=== PATIENT | female | born 1950 | race Caucasian/White ===

== ENCOUNTER 2016-11-07 18:24 | Emergency (ER) | payer BC, MEDICAID ==
[2016-11-07 18:37] VITALS: BMI 24.8
[2016-11-07] MEDS ORDERED: DiphenhydrAMINE 50 mg/ml Inj IVP STA (18:41)
[2016-11-07] MEDS ORDERED: Sodium Chloride 0.9% 1,000 ML IV STA (18:41)
[2016-11-07 18:45] VITALS: TEMP 98.4
[2016-11-07 19:32] LABS: ALB/GLOB RATIO 1.4 (1.1-1.8); ALBUMIN 4.4 g/dL (3.0-4.8); ALT/SGPT 36 U/L (7-56); AST/SGOT 27 U/L (15-39); BASO # 0.01 K/mm3 (0.0-2.0); BASO % 0.1 % (0.0-3.0); BLOOD UREA NITROGEN 15 mg/dL (7-21); CALCIUM 9.5 mg/dL (8.4-10.5); EOS # 0.1 (0.0-0.7); EOS % 1.4 % (1.5-5.0); GFR AFRICAN-AMERICAN > 60; GFR NON-AFRICAN AMERICAN > 60; GRAN % 44.9 % (50.0-68.0); HEMOGLOBIN 15.2 gm/dL (12.0-16.0); LIPASE 105 U/L (23-300); LYMPH % 49.1 % (22.0-35.0); MEAN CELL VOLUME 86.2 fL (80.0-105.0); MEAN CORPUSCULAR HEMOGLOBIN 29.9 pg (25.0-35.0); MEAN CORPUSCULAR HGB CONC 34.6 g/dl (31.0-37.0); MEAN PLATELET VOLUME 11.3 fl (7.0-11.0); MONO # 0.5 (0.1-0.6); MONO % 4.5 % (1.0-6.0); PLATELET COUNT 235 10^3/uL (120.0-450.0); RBC 5.09 10^6/uL (3.5-6.1); WHITE BLOOD COUNT 10.2 10^3/ul (4.5-11.0)
[2016-11-07 19:36] LABS: INR 1.01 (0.93-1.08); PROTHROMBIN TIME 10.9 Seconds (9.9-11.8)
--- NOTE | 2016-11-07 19:40 | ED PDOC ---
Arrival/HPI - General Chief Complaint: Allergic Reaction Time Seen by Provider: 11/07/16 18:36 Historian: Patient - History of Present Illness Narrative History of Present Illness (Text): 11/07/16 19:39 66 year old female presents to the emergency department for allergic reaction with throat closing, itchiness on hands, and associated vomiting after making a smoothie at home. Patient reports she used multiple ingredients including spinach, celery, flax seeds, and tanja seeds. She then says that she immediately within a few seconds felt her symptoms. Patient reports she had an allergic reaction to hummus 1 year ago. Denies urinary symptoms. No chest pain or dizziness. Time/Duration: Prior to Arrival Symptom Onset: Sudden Symptom Course: Unchanged Modifying Factors (Text): None Past Medical History - Provider Review Nursing Documentation Reviewed: Yes - Infectious Disease Hx of Infectious Diseases: None - Tetanus Immunization Tetanus Immunization: Unknown - Past Medical History Past Medical History: No Previous - Cardiac Hx Hyperlipemia: Yes Hx Pacemaker: No - Neurological Hx Paralysis: No - Hematological/Oncological Hx Blood Transfusions: No - Musculoskeletal/Rheumatological Hx Musculoskeletal Disorders: No - Psychiatric Hx Substance Use: No - Past Surgical History Past Surgical History: No Previous - Surgical History Other/Comment: right breast biopsy - Anesthesia Hx Anesthesia Reactions: Yes Hx Malignant Hyperthermia: No - Suicidal Assessment Feels Threatened In Home Enviroment: No Family/Social History - Physician Review Nursing Documentation Reviewed: Yes Family/Social History: Unknown Family HX Smoking Status: Never Smoked Hx Alcohol Use: No Hx Substance Use: No Hx Substance Use Treatment: No Allergies/Home Meds Allergies/Adverse Reactions: Allergies Penicillins Allergy (Verified 11/07/16 18:37) ANAPHYLAXIS Home Medications: Home Meds Medication Instructions Recorded Confirmed Cyanocobalamin (Vitamin B-12) 1,000 mcg PO QOTHERDAY 11/07/16 11/07/16 [Vitamin B-12] Multivitamin [Multi-Vitamin Daily] 1 each PO DAILY 11/07/16 11/07/16 Review of Systems - Physician Review All systems were reviewed & negative as marked: Yes - Review of Systems Eyes: absent: Vision Changes ENT: Other (feeling of throat swelling). absent: Hearing Changes Respiratory: Other (Throat closing sensation) Cardiovascular: absent: Chest Pain Gastrointestinal: Abdominal Pain, Nausea, Vomiting Genitourinary Female: absent: Dysuria Skin: Rash, Pruritis Neurological: absent: Headache Endocrine: absent: Diaphoresis Physical Exam Vital Signs Reviewed: Yes Vital Signs Temp Pulse Resp BP Pulse Ox 11/07/16 21:18 73 18 119/51 L 98 11/07/16 18:25 98.4 F 99 H 22 137/65 91 L Temperature: Afebrile Blood Pressure: Normal Pulse: Regular Respiratory Rate: Normal Appearance: Positive for: Non-Toxic Mental Status: Positive for: Alert and Oriented X 3 - Systems Exam Head: Present: Atraumatic, Normocephalic Pupils: Present: PERRL Conjunctiva: Present: Normal Mouth: Present: Moist Mucous Membranes Pharnyx: Present: Normal. No: ERYTHEMA, EXUDATE, TONSILS ENLARGED, Peritonsilar Swelling, Uvular Deviation, Muffled/Hoarse Voice, Strider, Soft Palate/Uvular Edema Neck: Present: Normal Range of Motion Respiratory/Chest: Present: Clear to Auscultation. No: Respiratory Distress, Accessory Muscle Use Cardiovascular: Present: Regular Rate and Rhythm, Normal S1, S2. No: Murmurs Abdomen: Present: Tenderness (Mild left uuper quadrant ttp), Normal Bowel Sounds. No: Distention, Peritoneal Signs Back: Present: Normal Inspection Upper Extremity: Present: Normal Inspection. No: Cyanosis, Edema Lower Extremity: Present: Normal Inspection. No: Edema Neurological: Present: GCS=15, CN II-XII Intact, Speech Normal Skin: Present: Warm, Dry, Rashes (There is an erythematous macular rash on the arms and trunk b/L with some palmar involvement but none n the soles.), Normal Color Psychiatric: Present: Alert, Oriented x 3, Normal Insight, Normal Concentration Medical Decision Making ED Course and Treatment: Impression: 66 year old female presents to the emergency department for allergic reaction with throat closing, itchiness on hands, and associated vomiting after making a smoothie at home. Differential Diagnosis include but are not limited to: Allergic reaction vs atypical acs vs gastritis vs pancreatitis Plan: -- Benadryl, Pepcid, Solu-medrol -- Labs -- Reassess and disposition Prior Visits: Notes and results from previous visits were reviewed. Patient last seen in ED on 05/02/15 for sore throat and discharged home. Progress Notes: 11/07/16 20:18 Patient reports full resolution of symptoms. She states she feels better. Labs and EKG unremarkable. 11/07/16 21:55 Patient has been observed further; continues to state that her symptoms have fully resolved. She no longer has any abdominal pain and no abdominal tenderness on exam as well as full resolution of throat closing sensation and rash. Will d/c on steroids and benadryl and have her f/u pmd. - Lab Interpretations Lab Results: 11/07/16 19:00 11/07/16 19:00 Lab Results 11/07/16 19:00: Sodium 139, Potassium 3.6, Chloride 102, Carbon Dioxide 22, Anion Gap 19, BUN 15, Creatinine 0.7, Est GFR ( Amer) > 60, Est GFR (Non- Af Amer) > 60, Random Glucose 134 H, Calcium 9.5, Total Bilirubin 0.7, AST 27, ALT 36, Alkaline Phosphatase 75, Lactate Dehydrogenase 439, Total Creatine Kinase 82, Troponin I < 0.01, Total Protein 7.6, Albumin 4.4, Globulin 3.2, Albumin/Globulin Ratio 1.4, Lipase 105 11/07/16 19:00: PT 10.9, INR 1.01, APTT 24.0 11/07/16 19:00: WBC 10.2 D, RBC 5.09, Hgb 15.2, Hct 43.9, MCV 86.2, MCH 29.9, MCHC 34.6, RDW 13.0, Plt Count 235, MPV 11.3 H, Gran % 44.9 L, Lymph % (Auto) 49.1 H, [place] % (Auto) 4.5, Eos % (Auto) 1.4 L, Baso % (Auto) 0.1, Gran # 4.60, Lymph # 5.0 H, [place] # 0.5, Eos # 0.1, Baso # 0.01 - EKG Interpretation EKG Interpretation (Text): EKG shows NSR at [address]/T wave changes, normal axis, normal intervals. Interpreted by me. Interpreted by ED Physician: Yes Type: 12 lead EKG - Medication Orders Current Medication Orders: Discontinued Medications Diphenhydramine HCl (Benadryl) 25 mg IVP STAT STA Stop: 11/07/16 18:42 Last Admin: 11/07/16 18:52 Dose: 25 mg Famotidine (Pepcid) 20 mg IVP STAT STA Stop: 11/07/16 18:42 Last Admin: 11/07/16 18:52 Dose: 20 mg Sodium Chloride (Sodium Chloride 0.9%) 1,000 mls @ 999 mls/hr IV .[id number] STA Stop: 11/07/16 19:41 Last Admin: 11/07/16 18:50 Dose: 999 mls/hr Methylprednisolone (Solu-Medrol) 125 mg IVP STAT STA Stop: 11/07/16 18:42 Last Admin: 11/07/16 18:52 Dose: 125 mg - Scribe Statement The provider has reviewed the documentation as recorded by the Jason Hernandez Provider Scribe Attestation: All medical record entries made by the Selwynibladonna were at my direction and personally dictated by me. I have reviewed the chart and agree that the record accurately reflects my personal performance of the history, physical exam, medical decision making, and the department course for this patient. I have also personally directed, reviewed, and agree with the discharge instructions and disposition. Disposition/Present on Arrival - Present on Arrival Any Indicators Present on Arrival: No History of DVT/PE: No History of Uncontrolled Diabetes: No Urinary Catheter: No History of Decub. Ulcer: No History Surgical Site Infection Following: None - Disposition Have Diagnosis and Disposition been Completed?: Yes Diagnosis: Allergic reaction Disposition: HOME/ ROUTINE Disposition Time: 22:00 Patient Plan: Discharge Condition: GOOD Discharge Instructions (ExitCare): Food Allergy (ED) Additional Instructions: Take the medications as prescribed. Avoid any of the substances that may have caused the reaction till assessment by an telemetry monitor. Follow up with Dr. Goldman. Return to the emergency department if any new concerning symptoms. Prescriptions: DiphenhydrAMINE [Benadryl] 1 cap PO Q6H PRN #20 cap PRN Reason: Itching / Pruritus predniSONE [Prednisone] 2 tab PO DAILY #8 tab Referrals: Craig Goldman MD [Primary Care Provider] - Follow up with primary
[2016-11-07 19:46] LABS: TROPONIN I < 0.01 ng/mL
[2016-11-07 21:19] VITALS: BP 119/51; PULSE 73; RESP 18; O2SAT 98
--- NOTE | 2016-11-08 08:55 | CARD ---
APPROVED REPORT EKG Measurement Heart [id number] <Conclusion> Normal sinus rhythm NSSTW changes, new
== END 2016-11-07 22:05 | disposition home or self-care (01) ==
LOC: ED 18:24
DX: T78.1XXA Other adverse food reactions, not elsewhere classified, initial encounter (principal); R11.10 Vomiting, unspecified; R09.89 Other specified symptoms and signs involving the circulatory and respiratory systems; X58.XXXA Exposure to other specified factors, initial encounter; E78.5 Hyperlipidemia, unspecified
CPT/HCPCS: 80053; 82550; 83615; 83690; 84484; 85025; 85610; 85730; 93005; 96361; 96374; 96375; 99284; J1200; J2930; J7040

== ENCOUNTER 2017-12-16 00:01 | Emergency (ER) | payer MEDICARE, OTHER ==
[2017-12-16 00:12] VITALS: BMI 26.9
[2017-12-16 00:16] VITALS: RESP 18; TEMP 97.9
--- NOTE | 2017-12-16 00:38 | ED PDOC ---
Arrival/HPI - General Chief Complaint: Headache Time Seen by Provider: 12/16/17 00:10 Historian: Patient - History of Present Illness Narrative History of Present Illness (Text): 12/16/17 00:37 Hallie Villalba is a 67 year old female, whose past medical history includes trigeminal neuralgia, who presents to the emergency department complaining of facial pain since yesterday. Patient states she has been experiencing left- sided facial pain with associated headache, nausea, and dizziness. Patient notes she has experienced similar pain in the past and was diagnosed with trigeminal neuralgia. Patient states she has been taking Advil for pain but denies any relief. Patient denies any fever, chills, chest pain, shortness of breath, abdominal pain, vomiting, diarrhea, urinary symptoms, back pain, neck pain, or any other complaints. Symptom Onset: Gradual Symptom Course: Unchanged Activities at Onset: Light Context: Home Past Medical History - Provider Review Nursing Documentation Reviewed: Yes - Infectious Disease Hx of Infectious Diseases: None - Tetanus Immunization Tetanus Immunization: Unknown - Past Medical History Past Medical History: No Previous - Cardiac Hx Hyperlipemia: Yes Hx Pacemaker: No - Neurological Hx Paralysis: No - Hematological/Oncological Hx Blood Transfusions: No - Musculoskeletal/Rheumatological Hx Musculoskeletal Disorders: No - Psychiatric Hx Substance Use: No - Past Surgical History Past Surgical History: No Previous - Surgical History Other/Comment: right breast biopsy - Anesthesia Hx Anesthesia Reactions: Yes Hx Malignant Hyperthermia: No - Suicidal Assessment Feels Threatened In Home Enviroment: No Family/Social History - Physician Review Nursing Documentation Reviewed: Yes Family/Social History: Unknown Family HX Smoking Status: Never Smoked Hx Alcohol Use: No Hx Substance Use: No Hx Substance Use Treatment: No Allergies/Home Meds Allergies/Adverse Reactions: Allergies Penicillins Allergy (Verified 11/07/16 18:37) ANAPHYLAXIS Home Medications: Home Meds Medication Instructions Recorded Confirmed Cyanocobalamin (Vitamin B-12) 1,000 mcg PO QOTHERDAY 11/07/16 12/19/17 [Vitamin B-12] Multivitamin [Multi-Vitamin Daily] 1 each PO DAILY 11/07/16 12/19/17 Gabapentin [Neurontin] 100 mg PO DAILY 12/19/17 12/19/17 Review of Systems - Physician Review All systems were reviewed & negative as marked: Yes - Review of Systems Constitutional: Normal Eyes: Normal ENT: Normal Respiratory: Normal Cardiovascular: Normal Gastrointestinal: Nausea Genitourinary Female: Normal. absent: Dysuria, Frequency, Hematuria, Urine Output Changes Musculoskeletal: Normal. absent: Back Pain, Neck Pain Skin: Normal. absent: Rash Neurological: Headache, Dizziness, Other (+left-sided facial pain) Endocrine: Normal Hemo/Lymphatic: Normal Psychiatric: Normal Physical Exam Vital Signs Reviewed: Yes Vital Signs Temp Pulse Resp BP Pulse Ox 12/16/17 02:30 85 18 131/85 100 12/16/17 00:15 97.9 F 67 18 142/81 98 Temperature: Afebrile Blood Pressure: Normal Pulse: Regular Respiratory Rate: Normal Appearance: Positive for: Well-Appearing, Non-Toxic, Comfortable Pain Distress: None Mental Status: Positive for: Alert and Oriented X 3 - Systems Exam Head: Present: Atraumatic, Normocephalic Pupils: Present: PERRL Extroacular Muscles: Present: EOMI Conjunctiva: Present: Normal Mouth: Present: Moist Mucous Membranes Neck: Present: Normal Range of Motion Respiratory/Chest: Present: Clear to Auscultation, Good Air Exchange. No: Respiratory Distress, Accessory Muscle Use Cardiovascular: Present: Regular Rate and Rhythm, Normal S1, S2. No: Murmurs Abdomen: No: Tenderness, Distention, Peritoneal Signs Back: Present: Normal Inspection. No: CVA Tenderness, Midline Tenderness, Paraspinal Tenderness Upper Extremity: Present: Normal Inspection. No: Cyanosis, Edema Lower Extremity: Present: Normal Inspection. No: Edema Neurological: Present: GCS=15, CN II-XII Intact, Speech Normal, Motor Func Grossly Intact, Normal Sensory Function, Gait Normal, Memory Normal Skin: Present: Warm, Dry, Normal Color. No: Rashes Psychiatric: Present: Alert, Oriented x 3, Normal Insight, Normal Concentration Medical Decision Making ED Course and Treatment: 12/16/17 00:37 Impression: 67 year old female complaining of left-sided facial pain since yesterday. Plan: -- CT Head w/o contrast -- IV fluids -- Reglan -- Reassess and disposition Prior Visits: Notes and results from previous visits were reviewed. Progress Notes: 12/16/17 02:25 CT Head shows: Brain: Normal. No hemorrhage. No significant white matter disease. No edema. Ventricles: Normal. No ventriculomegaly. Bones/joints: Normal. No acute fracture. Sinuses: Normal as visualized. No acute sinusitis. Mastoid air cells: Normal as visualized. No mastoid effusion. Soft tissues: Normal. IMPRESSION: No definite acute intracranial abnormality 12/16/17 02:30 On reevaluation the patient feels better and is in no acute distress. I have discussed the results and plan with the patient, who expresses understanding. Patient given the opportunity to ask question, all questions were answered and there is agreement with the plan to discharge the patient home. Patient is stable for discharge. Patient was instructed to follow up with physician/clinic in 1-2 days or return if symptoms persist/worsen or new concerning symptoms arise. - RAD Interpretation Radiology Orders: 12/16/17 00:41 HEAD W/O CONTRAST [CT] Stat [employer] Vendor: Radiologist - EKG Interpretation Interpreted by ED Physician: Yes Type: 12 lead EKG - Medication Orders Current Medication Orders: Discontinued Medications Sodium Chloride (Sodium Chloride 0.9%) 1,000 mls @ 80 mls/hr IV .[id number] Last Admin: 12/16/17 01:01 Dose: 80 mls/hr eMAR Start Stop Document 12/16/17 01:01 AD (Rec: 12/16/17 01:01 AD [id number]) Intravenous Solution Start Date 12/16/17 Start Time 01:01 Metoclopramide HCl (Reglan) 10 mg IVP ONCE ONE Stop: 12/16/17 00:41 Last Admin: 12/16/17 01:01 Dose: 10 mg IVP Administration Document 12/16/17 01:01 AD (Rec: 12/16/17 01:01 AD [id number]) Charges for Administration # of IVP Administrations 1 - Scribe Statement The provider has reviewed the documentation as recorded by the Jason Avelar Provider Scribe Attestation: All medical record entries made by the Scribladonna were at my direction and personally dictated by me. I have reviewed the chart and agree that the record accurately reflects my personal performance of the history, physical exam, medical decision making, and the department course for this patient. I have also personally directed, reviewed, and agree with the discharge instructions and disposition. Disposition/Present on Arrival - Present on Arrival Any Indicators Present on Arrival: No History of DVT/PE: No History of Uncontrolled Diabetes: No Urinary Catheter: No History of Decub. Ulcer: No History Surgical Site Infection Following: None - Disposition Have Diagnosis and Disposition been Completed?: Yes Diagnosis: Migraine Disposition: HOME/ ROUTINE Disposition Time: 02:30 Condition: GOOD Discharge Instructions (ExitCare): Migraine Headache (DC) Forms: [employer] ([employer]ive[employer])
[2017-12-16] MEDS ORDERED: Sodium Chloride 0.9% 1,000 ML IV SCH (00:45)
[2017-12-16 07:48] VITALS: BP 131/85; PULSE 85; O2SAT 100
--- NOTE | 2017-12-16 08:17 | CT ---
Date of service: 12/16/2017 PROCEDURE: CT HEAD WITHOUT CONTRAST. HISTORY: peguero COMPARISON: None available. TECHNIQUE: Axial computed tomography images were obtained through the head/brain without intravenous contrast. Radiation dose: Total exam DLP = 758 mGy-cm. This CT exam was performed using one or more of the following dose reduction techniques: Automated exposure control, adjustment of the mA and/or kV according to patient size, and/or use of iterative reconstruction technique. FINDINGS: HEMORRHAGE: No intracranial hemorrhage. BRAIN: No mass effect or edema. No atrophy or chronic microvascular ischemic changes. There is a probable arachnoid cyst at the right cerebellar pontine angle cistern VENTRICLES: Unremarkable. No hydrocephalus. CALVARIUM: Unremarkable. PARANASAL SINUSES: Unremarkable as visualized. No significant inflammatory changes. MASTOID AIR CELLS: Unremarkable as visualized. No inflammatory changes. OTHER FINDINGS: The report concurs with the preliminary [facility] report IMPRESSION: No acute intracranial findings
== END 2017-12-16 02:30 | disposition home or self-care (01) ==
LOC: ED 00:01
DX: G43.909 Migraine, unspecified, not intractable, without status migrainosus (principal); E78.5 Hyperlipidemia, unspecified
CPT/HCPCS: 70450; 96374; 99285; J2765; J7030

== ENCOUNTER 2017-12-19 18:46 | Emergency (ER) | payer MEDICARE, OTHER ==
[2017-12-19 18:47] VITALS: BMI 26.9
[2017-12-19 19:14] VITALS: TEMP 98.8
[2017-12-19] MEDS ORDERED: Sodium Chloride 0.9% 1,000 ML IV SCH (19:15)
[2017-12-19 19:25] LABS: BASO # 0.01 K/mm3 (0.0-2.0); BASO % 0.1 % (0.0-3.0); EOS # 0.2 (0.0-0.7); EOS % 1.9 % (1.5-5.0); GRAN # 4.96 (1.4-6.5); GRAN % 61.9 % (50.0-68.0); LYMPH # 2.5 (1.2-3.4); LYMPH % 30.7 % (22.0-35.0); MEAN CELL VOLUME 85.3 fl (80.0-105.0); MEAN CORPUSCULAR HEMOGLOBIN 29.8 pg (25.0-35.0); MONO # 0.4 (0.1-0.6); MONO % 5.4 % (1.0-6.0); RBC 5.03 10^6/uL (3.5-6.1)
[2017-12-19 19:32] LABS: INR 1.02; PARTIAL THROMBOPLASTIN TIME 30.4 Seconds (25.1-36.5); PROTHROMBIN TIME 11.6 SECONDS (9.4-12.5)
[2017-12-19 19:38] LABS: ALB/GLOB RATIO 1.4 (1.1-1.8); ALBUMIN 4.6 g/dL (3.0-4.8); ALT/SGPT 44 U/L (7-56); AST/SGOT 28 U/L (14-36); BLOOD UREA NITROGEN 10 mg/dL (7-21); CALCIUM 9.8 mg/dL (8.4-10.5); GFR AFRICAN-AMERICAN > 60; GFR NON-AFRICAN AMERICAN > 60; HDL CHOLESTEROL 47 mg/dL (29-60)
[2017-12-19 19:48] LABS: LDL CHOLESTEROL 182 mg/dL (0-129)
[2017-12-19 19:52] LABS: TROPONIN I < 0.01 ng/mL
--- NOTE | 2017-12-19 21:13 | ED PDOC ---
Arrival/HPI - General Chief Complaint: Weakness/Neurological Deficit Time Seen by Provider: 12/19/17 19:08 Historian: Patient, EMS - History of Present Illness Narrative History of Present Illness (Text): 12/19/17 19:05 Hallie Villalba is a 67 year old female, whose past medical history includes trigeminal neuralgia, who presents to the emergency department complaining of weakness. Patient states she has been experiencing left-sided facial numbness/ discomfort for the past few days and was seen and treated in the ER for similar complaints on 12/16/2017. Patient states today she developed generalized weakness and left leg numbness and came to the ER for further evaluation. Patient denies any fever, chills, chest pain, shortness of breath, nausea, vomiting, diarrhea, urinary symptoms, back pain, neck pain, headache, dizziness , vision changes, or any other complaints. Symptom Onset: Gradual Symptom Course: Unchanged Activities at Onset: Light Context: Home Past Medical History - Provider Review Nursing Documentation Reviewed: Yes - Infectious Disease Hx of Infectious Diseases: None - Tetanus Immunization Tetanus Immunization: Unknown - Past Medical History Past Medical History: No Previous - Cardiac Hx Pacemaker: No - Neurological Hx Paralysis: No Other/Comment: trigeminal neurolgia - Hematological/Oncological Hx Blood Transfusions: No - Musculoskeletal/Rheumatological Hx Musculoskeletal Disorders: No - Psychiatric Hx Emotional Abuse: No Hx Physical Abuse: No Hx Substance Use: No - Past Surgical History Past Surgical History: No Previous - Surgical History Other/Comment: right breast biopsy - Anesthesia Hx Anesthesia Reactions: Yes Hx Malignant Hyperthermia: No - Suicidal Assessment Feels Threatened In Home Enviroment: No Family/Social History - Physician Review Nursing Documentation Reviewed: Yes Family/Social History: Unknown Family HX Smoking Status: Never Smoked Hx Alcohol Use: No Hx Substance Use: No Hx Substance Use Treatment: No Allergies/Home Meds Allergies/Adverse Reactions: Allergies Penicillins Allergy (Verified 11/07/16 18:37) ANAPHYLAXIS Home Medications: Home Meds Medication Instructions Recorded Confirmed Cyanocobalamin (Vitamin B-12) 1,000 mcg PO QOTHERDAY 11/07/16 12/19/17 [Vitamin B-12] Multivitamin [Multi-Vitamin Daily] 1 each PO DAILY 11/07/16 12/19/17 Gabapentin [Neurontin] 100 mg PO DAILY 12/19/17 12/19/17 Review of Systems - Physician Review All systems were reviewed & negative as marked: Yes - Review of Systems Constitutional: Other (+generalized weakness). absent: Fevers Eyes: Normal. absent: Vision Changes ENT: Normal Respiratory: Normal. absent: SOB, Cough Cardiovascular: Normal. absent: Chest Pain Gastrointestinal: Normal. absent: Abdominal Pain, Diarrhea, Nausea, Vomiting Genitourinary Female: Normal. absent: Dysuria, Frequency, Hematuria, Urine Output Changes, Vaginal Discharge Musculoskeletal: Normal. absent: Back Pain, Neck Pain Skin: Normal. absent: Rash Neurological: Other (+left-sided facial numbness/discomfort). absent: Headache , Dizziness Endocrine: Normal Hemo/Lymphatic: Normal Psychiatric: Normal Physical Exam Vital Signs Reviewed: Yes Vital Signs Temp Pulse Resp BP Pulse Ox 12/19/17 21:45 67 12 132/55 L 98 12/19/17 20:08 62 16 134/72 96 12/19/17 19:13 98.8 F 80 18 163/125 H 98 12/19/17 19:08 99.5 F 83 18 145/80 96 Temperature: Afebrile Blood Pressure: Normal Pulse: Regular Respiratory Rate: Normal Appearance: Positive for: Well-Appearing, Non-Toxic, Comfortable Pain Distress: None Mental Status: Positive for: Alert and Oriented X 3 Finger Stick Blood Glucose: 123 - Systems Exam Head: Present: Atraumatic, Normocephalic Pupils: Present: PERRL Extroacular Muscles: Present: EOMI Conjunctiva: Present: Normal Mouth: Present: Moist Mucous Membranes Neck: Present: Normal Range of Motion Respiratory/Chest: Present: Clear to Auscultation, Good Air Exchange. No: Respiratory Distress, Accessory Muscle Use Cardiovascular: Present: Regular Rate and Rhythm, Normal S1, S2. No: Murmurs Abdomen: No: Tenderness, Distention, Peritoneal Signs Back: Present: Normal Inspection Upper Extremity: Present: Normal Inspection. No: Cyanosis, Edema Lower Extremity: Present: Normal Inspection. No: Edema Neurological: Present: GCS=15, CN II-XII Intact, Speech Normal, Motor Func Grossly Intact, Normal Sensory Function, Normal Cerebellar Funct, Memory Normal Skin: Present: Warm, Dry, Normal Color. No: Rashes Psychiatric: Present: Alert, Oriented x 3, Normal Insight, Normal Concentration Medical Decision Making ED Course and Treatment: 12/19/17 19:05 Impression: 67 year old female complaining of left-sided facial weakness, generalized weakness, and left-sided numbness. Plan: -- CT Head w/o contrast -- EKG -- Chest X-ray -- Labs, blood type and screen, lipid panel, troponin -- IV fluids -- Reglan -- Reassess and disposition Prior Visits: Notes and results from previous visits were reviewed. Progress Notes: 12/19/17 19:09 Code Stroke called. Pt taken to CT scan. 12/19/17 19:[address] Wilkes, neurologist, who states pt is not a code stroke and requests Code stroke be cancelled. pt to follow up with dr wilkes in am 12/19/17 19:36 CT Head reviewed, shows: Brain: Unremarkable. No hemorrhage. No significant white matter disease. No edema. Ventricles: There is mild asymmetric prominence of the CSF space at the right CP angle, unchanged. Suspect anatomic variant. Bones/joints: Unremarkable. No acute fracture. Soft tissues: Unremarkable. Sinuses: Unremarkable as visualized. No acute sinusitis. Mastoid air cells: Unremarkable as visualized. No mastoid effusion. IMPRESSION: No evidence for acute intracranial abnormality. Preliminary interpretation is based on receipt of 351 image(s). A final report will be issued subsequently. 12/19/17 19:37 Reviewed EKG, NSR at [address]-segment elevations or depressions, no T-wave inversions, normal intervals. 12/19/17 21:47 On re-evaluation, patient feels better and is in no acute distress. I have discussed the results and plan with the patient, who expresses understanding. Patient in agreement with plan to be discharged home. Patient is stable for discharge. Patient was instructed to follow up with physician or return if symptoms worsen or new concerning symptoms arise. 12/21/17 22:21 - Lab Interpretations Lab Results: 12/19/17 19:13 12/19/17 19:13 Lab Results 12/19/17 19:13: Hemoglobin A1c 5.9 12/19/17 19:13: Sodium 142, Potassium 4.0, Chloride 104, Carbon Dioxide 25, Anion Gap 16, BUN 10, Creatinine 0.6 L, Est GFR ( Amer) > 60, Est GFR ( Non-Af Amer) > 60, Random Glucose 123 H, Calcium 9.8, Total Bilirubin 0.6, AST 28, ALT 44, Alkaline Phosphatase 86, Troponin I < 0.01, Total Protein 7.9, Albumin 4.6, Globulin 3.3, Albumin/Globulin Ratio 1.4, Triglycerides 153, Cholesterol 270 H, LDL Cholesterol Direct 182 H, HDL Cholesterol 47 12/19/17 19:13: PT 11.6, INR 1.02, APTT 30.4 12/19/17 19:13: WBC 8.0 D, RBC 5.03, Hgb 15.0, Hct 42.9, MCV 85.3, MCH 29.8, MCHC 35.0, RDW 13.0, Plt Count 193, MPV 10.0, Gran % 61.9, Lymph % (Auto) 30.7, Leake % (Auto) 5.4, Eos % (Auto) 1.9, Baso % (Auto) 0.1, Gran # 4.96, Lymph # ( Auto) 2.5, Leake # (Auto) 0.4, Eos # (Auto) 0.2, Baso # (Auto) 0.01 12/19/17 19:10: Blood Type A POSITIVE, Antibody Screen Negative, BBK History Checked No verified bt I have reviewed the lab results: Yes - RAD Interpretation Radiology Orders: 12/19/17 19:14 HEAD W/O (CODE STROKE) [CT] Stat CHEST PORTABLE [RAD] Stat Lecturer In Computer Science: ED Physician, Radiologist - EKG Interpretation Interpreted by ED Physician: Yes Type: 12 lead EKG - Medication Orders Current Medication Orders: Discontinued Medications Sodium Chloride (Sodium Chloride 0.9%) 1,000 mls @ 100 mls/hr IV .Q10H [facility] Last Admin: 12/19/17 19:33 Dose: 100 mls/hr eMAR Start Stop Document 12/19/17 19:33 CNR (Rec: 12/19/17 19:34 CNR [facility] [id number] Intravenous Solution Start Date 12/19/17 Start Time 19:33 Ketorolac Tromethamine (Toradol) 15 mg IVP ONCE ONE Stop: 12/19/17 20:17 Last Admin: 12/19/17 20:23 Dose: 15 mg MAR Pain Assessment Document 12/19/17 20:23 CNR (Rec: 12/19/17 20:23 CNR [id number]) Pain Reassessment Is this a pain reassessment? No IVP Administration Document 12/19/17 20:23 CNR (Rec: 12/19/17 20:23 CNR [id number]) Charges for Administration # of IVP Administrations 1 Metoclopramide HCl (Reglan) 10 mg IVP ONCE ONE Stop: 12/19/17 19:25 Last Admin: 12/19/17 19:34 Dose: 10 mg IVP Administration Document 12/19/17 19:34 CNR (Rec: 12/19/17 19:34 CNR [facility] [id number][facility] Charges for Administration # of IVP Administrations 1 NIHSS Scale ([place]) Time Performed: 19:09 - How Severe is the Stoke Baseline Level of Consciousness: 0=Alert LOC to Questions: 0=Both comments correct LOC to commands: 0=Obeys both correctly Best Gaze: 0=Normal Visual: 0=No visual loss Facial: 0=Normal Motor Arm - Left: 0=No drift Motor Arm - Right: 0=No drift Motor Leg - Left: 0=No drift Motor Leg - Right: 0=No drift Limb Ataxia: 0=Absent Sensory: 0=Normal Best Language: 0=No aphasia Dysarthia: 0=Normal articulation Extinction & Inattention (Neglect): 0=Normal, no object Score: 0 Risk Level: No Stroke Risk rTPA Inclusion/Exclusion - Refusal of Treatment Patient Refused Treatment: No - Inclusion Criteria for Altepase Patient is 18 years or Older: Yes The Clinical Diagnosis of Ischemic Stroke That is Causing a Potentially Disabling Neurological Deficit: No Time of Onset is Well Established to be Less Than 270 Minute Before Treatment Would Begin: Yes Risk/Benefit Discussed With Patient/Family Member Present: Yes - Exclusion Criteria for Altepase Uncontrolled Hypertension at Time of Treatment (Systolic BP above 185 or Diastolic BP above 110 mmHg): No Active Internal Bleeding: No Known Bleeding Diathesis Including but Not Limited to: Platelets Below 100,000/ mm,PTT Above 40 sec After Heparin Use, Current Use of Oral Anitcoagulant With INR Greater Than 1.7 or PT Greater Than 15 secs: No Evidence of an Intracranial Hemorrhage: No Evidence of Major Acute Infarct With Signs Greater Than 1/3 MCA Territory: No Suspicion of Subarachnoid Hemorrhage on Pretreatment Evaluation Even if CT Head Negative For Hemorrhage: No - Warning to TPA With Conditions Following Conditions Weighed Against Anticipated Benefit: Yes Condition: Stroke Serevity Too Mild - Scribe Statement The provider has reviewed the documentation as recorded by the Scribe Ariela Avelar Provider Scribe Attestation: All medical record entries made by the Scribe were at my direction and personally dictated by me. I have reviewed the chart and agree that the record accurately reflects my personal performance of the history, physical exam, medical decision making, and the department course for this patient. I have also personally directed, reviewed, and agree with the discharge instructions and disposition. Disposition/Present on Arrival - Present on Arrival Any Indicators Present on Arrival: No History of DVT/PE: No History of Uncontrolled Diabetes: No Urinary Catheter: No History of Decub. Ulcer: No History Surgical Site Infection Following: None - Disposition Have Diagnosis and Disposition been Completed?: Yes Diagnosis: Migraine variant with headache Disposition: HOME/ ROUTINE Disposition Time: 21:47 Condition: IMPROVED Discharge Instructions (ExitCare): Migraine Headache (DC) Additional Instructions: follow up with dr wilkes in Referrals: Carmen Wilkes MD [Staff Provider] - Follow up with primary Forms: [employer] (Khmer)
[2017-12-19 21:46] VITALS: BP 132/55; PULSE 67; RESP 12; O2SAT 98
--- NOTE | 2017-12-20 08:44 | RAD ---
Date of service: 12/19/2017 HISTORY: Code Stroke COMPARISON: 05/18/2014. FINDINGS: LUNGS: The lungs are well inflated. There is mild pulmonary venous congestion. PLEURA: No significant pleural effusion identified, no pneumothorax apparent. CARDIOVASCULAR: There is mild cardiomegaly. OSSEOUS STRUCTURES: No significant abnormalities. VISUALIZED UPPER ABDOMEN: Normal. OTHER FINDINGS: None. IMPRESSION: No active pulmonary disease. Mild cardiomegaly and pulmonary venous congestion.
--- NOTE | 2017-12-20 09:06 | CT ---
Date of service: 12/19/2017 PROCEDURE: CT HEAD WITHOUT CONTRAST. HISTORY: Code Stroke COMPARISON: 12/16/2017 TECHNIQUE: Axial computed tomography images were obtained through the head/brain without intravenous contrast. Radiation dose: Total exam DLP = 904 mGy-cm. This CT exam was performed using one or more of the following dose reduction techniques: Automated exposure control, adjustment of the mA and/or kV according to patient size, and/or use of iterative reconstruction technique. FINDINGS: HEMORRHAGE: No intracranial hemorrhage. BRAIN: No mass effect or edema. No atrophy or chronic microvascular ischemic changes. There is a probable arachnoid cyst in the right cerebellar pontine angle cistern. VENTRICLES: Unremarkable. No hydrocephalus. CALVARIUM: Unremarkable. PARANASAL SINUSES: Unremarkable as visualized. No significant inflammatory changes. MASTOID AIR CELLS: Unremarkable as visualized. No inflammatory changes. OTHER FINDINGS: The report concurs with the preliminary [facility] report IMPRESSION: No acute findings
--- NOTE | 2017-12-20 09:53 | CARD ---
APPROVED REPORT Date of service: 12/19/2017 EKG Measurement Heart [id number] <Conclusion> Normal sinus rhythm Normal ECG
== END 2017-12-19 21:47 | disposition home or self-care (01) ==
LOC: ED 18:46
DX: G43.909 Migraine, unspecified, not intractable, without status migrainosus (principal)
CPT/HCPCS: 70450; 71045; 80053; 80061; 83036; 84484; 85025; 85610; 85730; 86850; 86900; 93005; 96374; 96375; 99285; J1885; J2765; J7030